=== PATIENT | female | born 1940 | race Caucasian/White ===

== ENCOUNTER 2020-10-20 14:01 | Emergency (ER) | payer MEDICARE ==
[~2020-10-20] VITALS: Ht 167.6 cm; Wt 97.5 kg
[2020-10-20] MEDS ORDERED: FURO40 PO (15:54)
[2020-10-20] MEDS ORDERED: ROSUVASTATIN CA40 MG PO (15:54)
[2020-10-20] MEDS ORDERED: METO100ER PO (15:54)
[2020-10-20] MEDS ORDERED: AMIODARONE HCL100 M3 PO (15:55)
== END 2020-10-20 16:08 | disposition home or self-care (01) ==
LOC: ER 14:01
DX: S42.292A Other displaced fracture of upper end of left humerus, initial encounter for closed fracture (principal); S00.11XA Contusion of right eyelid and periocular area, initial encounter; I25.810 Atherosclerosis of coronary artery bypass graft(s) without angina pectoris; Z95.1 Presence of aortocoronary bypass graft; W10.9XXA Fall (on) (from) unspecified stairs and steps, initial encounter; Y92.009 Unspecified place in unspecified non-institutional (private) residence as the place of occurrence of the external cause
CPT/HCPCS: 70450; 73030; 99284-25